=== PATIENT | female | born 1955 | race Caucasian/White ===

== ENCOUNTER → 2016-12-15 | Day surgery (SDC) | payer OTHER ==
[~2016-12-15] VITALS: Ht 162.6 cm; Wt 62.2 kg
[~2016-12-15] MED LIST: BUSPIRONE HCL15 MG PO; EFFEXOR XR150 MG PO; LIDOCAINE TOP; PROTONIX40 MG PO
--- NOTE | 2016-12-15 07:59 | NUR ---
2 IV ATTEMPETS MADE PER KATERYNA BELL
== END | disposition disaster alternative care site (69) ==
LOC: GPOC 12-12 09:00 → GEND 07:14 → GPOC 07:30
PROC: 0DJD8ZZ Inspection of Lower Intestinal Tract, Via Natural or Artificial Opening Endoscopic (ICD-10-PCS; principal; 2016-12-15)
PROC: 0DB98ZX Excision of Duodenum, Via Natural or Artificial Opening Endoscopic, Diagnostic (ICD-10-PCS; 2016-12-15)
DX: Z12.11 Encounter for screening for malignant neoplasm of colon (principal); K29.50 Unspecified chronic gastritis without bleeding; D50.9 Iron deficiency anemia, unspecified; K63.89 Other specified diseases of intestine; K29.80 Duodenitis without bleeding; F41.9 Anxiety disorder, unspecified; F32.9 Major depressive disorder, single episode, unspecified; J45.909 Unspecified asthma, uncomplicated; G43.909 Migraine, unspecified, not intractable, without status migrainosus; Z88.2 Allergy status to sulfonamides; Z88.8 Allergy status to other drugs, medicaments and biological substances; Z90.49 Acquired absence of other specified parts of digestive tract; Z90.710 Acquired absence of both cervix and uterus; Z98.890 Other specified postprocedural states; Z79.899 Other long term (current) drug therapy
CPT/HCPCS: J2001; J2405; J7030